=== PATIENT | male | born 1935 | race Two or more races ===

== ENCOUNTER 2023-10-19 21:21 | Emergency (ER) | payer OTHER ==
[~2023-10-19] VITALS: Ht 167.6 cm; Wt 77.1 kg
[~2023-10-19 21:21] MED LIST: ADVAIR 2501 DISK W/1 IH; CATAFLAN PO; CEFADROXIL500 MG PO; LISINOPRIL10 MG PO; PERCOCET 5/3251 TAB PO; PNEU16DI2; XARELTO10 MG PO
[2023-10-19] MEDS ORDERED: CALCIUM MAGNES1 EAC1 PO (21:49)
[2023-10-19] MEDS ORDERED: RENAL VITAMIN0.8 MG (21:50)
[2023-10-19 23:46] LABS: HEMATOCRIT 37.9 % (39.0-48.0); HEMOGLOBIN 12.5 g/dL (13-16.00); MEAN CELL VOLUME 86.4 fL (80.0-100.00); MEAN CORPUSCULAR HEMOGLOBIN 28.4 pg (27.00-32.0); MEAN CORPUSCULAR HGB CONC 32.9 g/dl (32.0-36.0); PLATELET COUNT 153 K/uL (150-450); RED BLOOD COUNT 4.39 M/uL (4.00-6.00); RED CELL DISTRIBUTION WIDTH 13.6 % (11.5-14.5)
[2023-10-20 00:32] LABS: BILIRUBIN TOTAL 0.43 mg/dL (0.3-1.2); CALCIUM 9.5 mg/dL (8.5-10.1); CREATININE SERUM 1.46 mg/dL (0.70-1.30); GFR 45.78; GLOBULINA 4.4 G/DL (2.4-3.5); POTASSIUM 4.3 mEq/L (3.5-5.1); TOTAL PROTEIN 8.4 gm/dL (6.4-8.2)
[2023-10-20 03:55] LABS: INR 0.98; PARTIAL THROMBOPLASTIN TIME 24.8 SECONDS (22.0-34.0); PROTHROMBIN TIME 10.3 SECONDS (9.0-11.5)
[2023-10-20] MEDS ORDERED: PEPCID40 MG PO (05:49)
== END 2023-10-20 07:24 ==
LOC: ER 21:22
PROVIDERS: General Practice
DX: R00.1 Bradycardia, unspecified (principal); R10.13 Epigastric pain; R10.9 Unspecified abdominal pain; I10 Essential (primary) hypertension
CPT/HCPCS: 36415; 71045; 93005; 93041; 96365; 99283; J3490

== ENCOUNTER 2023-12-01 07:50 | Outpatient (CLI) | payer OTHER ==
[~2023-12-01 07:50] MED LIST changes: +CALCIUM MAGNES1 EAC1 PO; +PEPCID40 MG PO; +RENAL VITAMIN0.8 MG
== END 2023-12-01 08:06 | disposition home or self-care (01) ==
LOC: TOM 07:50 → RX STUDY 07:50
PROVIDERS: ATTEND Internal Medicine Gastroenterology
DX: R13.10 Dysphagia, unspecified (principal); R13.13 Dysphagia, pharyngeal phase; R10.13 Epigastric pain

== ENCOUNTER 2023-12-12 12:09 | Emergency (ER) | payer OTHER ==
[~2023-12-12] VITALS: Ht 170.2 cm; Wt 73.9 kg
[2023-12-12] MEDS ORDERED: NORVASC5 MG PO (13:05)
[2023-12-12] MEDS ORDERED: COZAAR25 MG PO (13:05)
[2023-12-12] MEDS ORDERED: IPRATROPIUM BROMIDE 0.5 MG/2.5 ML AMPUL.NEB IH ONE (14:30)
[2023-12-12] MEDS ORDERED: LEVALBUTEROL HCL 0.63 MG/3 ML SOLUTION IH ONE (14:30)
[2023-12-12 14:53] LABS: HEMATOCRIT 37.8 % (39.0-48.0); HEMOGLOBIN 12.6 g/dL (13-16.00); MEAN CELL VOLUME 86.1 fL (80.0-100.00); MEAN CORPUSCULAR HEMOGLOBIN 28.6 pg (27.00-32.0); MEAN CORPUSCULAR HGB CONC 33.2 g/dl (32.0-36.0); PLATELET COUNT 147 K/uL (150-450); RED BLOOD COUNT 4.39 M/uL (4.00-6.00); RED CELL DISTRIBUTION WIDTH 13.3 % (11.5-14.5)
[2023-12-12] MEDS ORDERED: IPRATROPIUM BROMIDE 0.5 MG/2.5 ML AMPUL.NEB IH SCH (17:15)
[2023-12-12] MEDS ORDERED: METHYLPREDNISOLONE SOD SUCC 125 MG VIAL IV ONE (17:15)
[2023-12-12] MEDS ORDERED: LEVALBUTEROL HCL 1.25 MG/3 ML SOLUTION IH SCH (17:15)
== END 2023-12-12 22:27 | disposition home or self-care (01) ==
LOC: ER 12:10
PROVIDERS: General Practice
DX: J11.1 Influenza due to unidentified influenza virus with other respiratory manifestations (principal); J45.901 Unspecified asthma with (acute) exacerbation; Z20.822 Contact with and (suspected) exposure to COVID-19
CPT/HCPCS: 36415; 71045; 71046; 94640; 96365; 99284; J2930

== ENCOUNTER 2024-01-06 09:10 | Outpatient (CLI) | payer OTHER ==
[~2024-01-06 09:10] MED LIST changes: +COZAAR25 MG PO; +NORVASC5 MG PO
== END 2024-01-06 09:15 | disposition home or self-care (01) ==
LOC: TOM 09:10
PROVIDERS: ATTEND Internal Medicine Gastroenterology
DX: R10.13 Epigastric pain (principal)

== ENCOUNTER 2024-05-15 13:36 | Emergency (ER) | payer OTHER ==
[~2024-05-15] VITALS: Ht 170.2 cm; Wt 78.9 kg
[2024-05-15] MEDS ORDERED: GLUCOTROL XL5 MG PO (14:28)
[2024-05-15] MEDS ORDERED: SIMVASTATIN5 MG PO (14:28)
[2024-05-15] MEDS ORDERED: ERYTHROMYCIN BASE 1 GM TUBE OP ONE (17:15)
[2024-05-15] MEDS ORDERED: GENTAMICIN SULFATE 3.5 GM TUBE OP ONE (17:30)
== END 2024-05-15 17:32 ==
LOC: ER 13:37
DX: S05.8X2A Other injuries of left eye and orbit, initial encounter (principal); X58.XXXA Exposure to other specified factors, initial encounter; Y93.89 Activity, other specified; Y92.89 Other specified places as the place of occurrence of the external cause; Y99.8 Other external cause status; I10 Essential (primary) hypertension